=== PATIENT | female | born 1940 | race Caucasian/White ===

== ENCOUNTER 2016-06-29 09:13 | Observation (INO) | payer BC ==
[2016-06-20 17:48] LABS: BASOPHILS 0.5 %; BASOPHILS ABSOLUTE 0.04 10/3/uL (0.0-0.16); EOSINOPHILS 5.8 %; EOSINOPHILS ABSOLUTE 0.43 10/3/uL (0.0-0.53); HEMATOCRIT 38.9 % (36.0-48.0); HEMOGLOBIN 12.7 g/dL (12.0-16.0); IMMATURE GRANULOCYTES 0.3 %; IMMATURE GRANULOCYTES ABSOLUTE 0.02 10/3/uL (0.0-0.11); LYMPHOCYTES 25.1 %; LYMPHOCYTES ABSOLUTE 1.87 10/3/uL (0.67-4.30); MEAN CORPUS HGB CONC 32.6 g/dL (32.0-36.0); MEAN CORPUSCULAR HEMOGLOB 27.8 pg (26.0-34.0); MEAN CORPUSCULAR VOLUME 85.1 fL (80-100); MEAN PLATELET VOLUME 11.2 fL (9.2-13.0); MONOCYTES 8.2 %; MONOCYTES ABSOLUTE 0.61 10/3/uL (0.21-1.20); NEUTROPHILS 60.1 %; NEUTROPHILS ABSOLUTE 4.49 10/3/uL (2.02-8.40); PLATELET COUNT 257 10/3/uL (150-400); RBC DISTRIBUTION WIDTH 13.9 % (12.0-16.0); RED CELL COUNT 4.57 10/6/uL (4.0-5.6)
[2016-06-20 17:49] LABS: MANUAL DIFF NO %; WHITE BLOOD CELLS 7.5 10/3/uL (4.5-10.5)
[2016-06-20 17:55] LABS: INTERNATIONAL NORMAL RATI 0.9 UNITS (-); PARTIAL THROMBO TIME 28.6 SEC (22.5-37.2); PROTIME (NOT ORD) 12.5 SEC (12.0-14.5)
[2016-06-20 18:09] LABS: A/G RATIO 1.1 (0.7-1.9); ALBUMIN 3.8 G/DL (3.5-5.0); ALKALINE PHOSPHATASE 61 U/L (45-117); BUN (BLOOD UREA NITROGEN) 12 MG/DL (6-23); CALCIUM, SERUM 8.9 MG/DL (8.5-10.4); CHLORIDE, SERUM 105 MMOL/L (96-112); CO2 (CARBON DIOXIDE) 28 MMOL/L (24-34); CREATININE 0.69 MG/DL (0.55-1.02); GFR AFRICAN AMERICAN 99 ML/MIN (>=60); GFR NON AFRICAN AMERICAN 86 ML/MIN (>=60); GLOBULIN 3.6 G/DL (2.5-4.1); GLUCOSE, SERUM 97 MG/DL (60-99); POTASSIUM, SERUM 3.8 MMOL/L (3.5-5.3); SGOT(AST) 17 U/L (5-40); SGPT(ALT) 36 U/L (5-65); SODIUM, SERUM 142 MMOL/L (135-148); TOTAL BILIRUBIN 0.7 MG/DL (0-1.2); TOTAL PROTEIN 7.4 G/DL (6.0-8.5)
[2016-06-20 19:21] LABS: PFA (COL/EPI) 120 SEC (72-180)
--- NOTE | ~2016-06-29 | OP ---
Record Of Operation [facility] [address] [place]. [address] NAME: HARPER CONCEPCION : 42 STATUS : REG [facility] [place] PAT#: [id number] AGE: 76 ADM/REG DATE : 06/29/16 MR#: [id number] REPORT SERV DATE: 06/29/16 DICTATED BY: JAQUI VANN DATE: 06/29/16 REPORT STATUS : Draft TRANSCRIBED BY: GRANT DATE: 06/29/16 DATE OF PROCEDURE: PREOPERATIVE DIAGNOSIS: Left breast DCIS. POSTOPERATIVE DIAGNOSIS: Left breast DCIS. PROCEDURES: Left breast skin-sparing mastectomy and left axillary sentinel node biopsy. INDICATION FOR THE PROCEDURE: Ms Concepcion is a 76-year-old relatively quite healthy female, who has had a history of right breast and right lung cancer. She was recently diagnosed with a DCIS on the left side. She has a generous area of microcalcifications extending over the main portion of the left breast. She is not a good candidate for segmentectomy. The patient is motivated for some sort of reconstruction. She has met with Dr. Kan, and I believe his plan is for a [place] type reconstruction with her on tissue. Please see his note for further details. OPERATIVE FINDINGS: After appropriate consent was on the chart, the patient was taken to the operating room in supine position. She was placed under general anesthesia without any complications. The gamma probe was placed in the left axilla and good uptake was noted. Methylene blue was not utilized. The circum-vertical incision had been marked on the patient prior to starting by Dr. Kan. It was made with a #15 blade. Sharp dissection was carried down to the breast parenchyma, and dissection was carried out with plasma blade to the extent of the breast parenchyma in all directions. Dissection was carried down to the pectoralis major muscle, and the fascia was taken off the muscle with the breast intact. The breast was divided from the axillary fat pad at the axillary tail and marked with sutures. The breast was sent for permanent pathology. No obvious mass were noted in the specimen. The wound was copiously irrigated with warm saline. Hemostasis was achieved. The left axillary sentinel node biopsy was performed in routine fashion. The gamma probe was utilized to excise a somewhat lobulated lymph node with an ex-vivo count of 6400. This was sent for frozen section, and pathology noted no gross metastatic disease or microscopic metastatic disease. No additional lymph nodes were taken. The wound was again irrigated and hemostasis was noted. It was packed with a wet lap sponge. Please see Dr. Kan's dictation for his details. All counts were correct at the end of the case. ESTIMATED BLOOD LOSS: 75 mL. COMPLICATIONS: None. SPECIMEN: Left breast and left axillary sentinel node x1. BW/MODL Jaqui Record Of Operation [address] [place] [address] NAME: HARPER CONCEPCION : 42 STATUS : REG [facility] [place] PAT#: [id number] AGE: 76 ADM/REG DATE : 06/29/16 MR#: [id number] REPORT SERV DATE: 06/29/16 DICTATED BY: JAQUI VANN DATE: 06/29/16 REPORT STATUS : Draft TRANSCRIBED BY: MODL DATE: 06/29/16 MD Ashley / [id number] CC: MD Belen Ferrera M.D. [facility] Mika Kan M.D.
--- NOTE | ~2016-06-29 | OP ---
Record Of Operation [facility] [address] [place]. [address] NAME: HARPER CONCEPCION : 44 STATUS : [facility] PAT#: [id number] AGE: 76 ADM/REG DATE : 06/29/16 MR#: [id number] REPORT SERV DATE: 06/30/16 DICTATED BY: VIRGILIO KAN DATE: 06/30/16 REPORT STATUS : Draft TRANSCRIBED BY: GRANT DATE: 06/30/16 DATE OF PROCEDURE: 06/29/2016 PREOPERATIVE DIAGNOSES: Surgical absence of the left breast, history of breast cancer. PROCEDURE: Mastectomy reconstruction by other means. INDICATIONS AND FINDINGS OF THE PROCEDURE: This 76-year-old female is anticipating a left mastectomy. She is appropriate for mastectomy reconstruction using the surrounding soft tissue as integrated flap. DETAILS OF THE PROCEDURE: The patient presents on the operating table after a left mastectomy. She was then checked for hemostasis, irrigated with Hibiclens solution, two inferior drains were then placed. Our attention was then turned to the reconstruction. The circumvertical mastectomy component was then closed on the deep layer with 3-0 Monocryl. A subdermal closure was then affected with 3-0 Monocryl. With this completed, incision was made in the inframammary crease. A tailor tack closure was then affected using 3-0 Monocryl to determine the amount of skin envelope that should be de-epithelialized. This was subsequently marked on the skin and this area was de-epithelialized and included the entire inframammary crease extending up about 4 cm maximally centrally and then into a [place] curve medially and laterally. This area was excised. Hemostasis was checked with cautery. This area was involuted on itself with multiple layers of 3-0 Monocryl. The completion closure was then carried out with intracuticular 3-0 Monocryl imbricating the wound edges into a pursestring. She was subsequently cleansed with peroxide. Nitroglycerin paste dry dressings were placed. The drains were set to suction and she was remanded to the recovery room in stable condition. All sponge and needle counts were correct. JACLYN/GRANT Virgilio Kan M.D. / [id number] CC: MD Belen Ferrera M.D.
[~2016-06-29 09:13] MED LIST: ADVAIR250 INH; CITRACAL PO; DITRO5 PO; DORYX150 MG PO; FOSAMAX70 MG PO; GLUCCHONDR PO; IBU-200200 MG PO; K250 PO; MULTIPLE VIT PO; POTASSIUM GLUCO99 MG PO; POTASSIUM95 MG PO; PRILOSEC OTC20 MG PO; SUPER B COMP PO; VITAMIN D31000 UNIT PO; ZOCOR20 PO; [UNRECOGNIZED DRUG - OTHER] PO
[2016-06-30] MEDS ORDERED: K500 PO (12:56)
[2016-06-30] MEDS ORDERED: PERCOCET 7.5/321 TAB PO (12:57)
[2016-06-30] MEDS ORDERED: AT25 PO (12:57)
== END 2016-06-30 14:00 | disposition home or self-care (01) ==
LOC: SDC 09:13 → 4EA 17:41
PROVIDERS: Surgery Surgery of the Hand; Surgery Surgical Oncology
PROC: 07B60ZX Excision of Left Axillary Lymphatic, Open Approach, Diagnostic (ICD-10-PCS; 2016-06-29)
PROC: 0HTU0ZZ Resection of Left Breast, Open Approach (ICD-10-PCS; principal; 2016-06-29 13:15)
PROC: 0HRU07Z Replacement of Left Breast with Autologous Tissue Substitute, Open Approach (ICD-10-PCS; 2016-06-29 13:15)
DX: D05.12 Intraductal carcinoma in situ of left breast (principal); J45.909 Unspecified asthma, uncomplicated; G43.909 Migraine, unspecified, not intractable, without status migrainosus; K21.9 Gastro-esophageal reflux disease without esophagitis; E78.00 Pure hypercholesterolemia, unspecified; M81.0 Age-related osteoporosis without current pathological fracture; Z88.2 Allergy status to sulfonamides; Z79.899 Other long term (current) drug therapy; Z98.890 Other specified postprocedural states; Z98.41 Cataract extraction status, right eye; Z98.42 Cataract extraction status, left eye; Z90.89 Acquired absence of other organs; Z85.118 Personal history of other malignant neoplasm of bronchus and lung
CPT/HCPCS: 78195; 80053; 85025; 85576; 85610; 85730; 88307; 88331; 88342; 88360; 93005; A9270-GY; A9541; C1769; G0378; J0690; J2405; J2795; J3010